=== PATIENT | female | born 1995 | race Caucasian/White ===

== ENCOUNTER 2017-02-22 10:11 | Emergency (ER) | payer OTHER ==
[~2017-02-22] VITALS: Ht 154.9 cm; Wt 54.4 kg
--- NOTE | 2017-02-22 10:40 | NUR ---
Dr Dupree at the bedside.
--- NOTE | 2017-02-22 10:46 | NUR ---
MD I&D pt's 5th digit at nail base. pt tolorated well.
[2017-02-22 10:51] VITALS: BP 113/55
--- NOTE | 2017-02-22 10:53 | NUR ---
Patient discharged to home in stable conditon. Written and verbal after care instructions given. Patient verbalizes understanding of instructions.
== END 2017-02-22 10:54 | disposition home or self-care (01) ==
LOC: ER 10:11
DX: L03.012 Cellulitis of left finger (principal)
CPT/HCPCS: 10060; 99283; A4663

== ENCOUNTER 2018-04-26 08:10 | Emergency (ER) | payer OTHER ==
[~2018-04-26] VITALS: Ht 154.9 cm; Wt 54.4 kg
[2018-04-26] MEDS ORDERED: KETOROLAC TROMETHAMINE 30 MG INJ IM ONE (08:30)
[2018-04-26] MEDS ORDERED: KETOROLAC TROMETHAMINE 30 MG INJ ONE (08:36)
--- NOTE | 2018-04-26 08:39 | NUR ---
Patient discharged to home in stable conditon. Written and verbal after care instructions given. Patient verbalizes understanding of instructions.
== END 2018-04-26 08:40 | disposition home or self-care (01) ==
LOC: ER 08:10
DX: L03.012 Cellulitis of left finger (principal)
CPT/HCPCS: 96372; 99283; J1885; A4663